=== PATIENT | male | born 1960 | race Caucasian/White ===

== ENCOUNTER 2024-01-26 09:10 | Inpatient (IN) | payer MEDICAID ==
[~2024-01-26] VITALS: Ht 167.6 cm; Wt 72.8 kg
[2024-01-26 10:08] LABS: HEMATOCRIT. 36.2 % (42.0-52.0); HEMOGLOBIN. 11.6 g/dL (14.0-18.0); MEAN CORPUSCULAR HEMOGLOBIN 28.2 pg (28.0-32.0); MEAN CORPUSCULAR HGB CONC 31.9 g/dL (31.0-37.0); MEAN CORPUSCULAR VOLUME 88.5 fL (80.0-94.0); MEAN PLATELET VOLUME 6.9 fl (7.4-10.4); PLATELET 512 x1000/uL (130-400); RED BLOOD CELL COUNT 4.09 mill/uL (4.7-6.1); RED CELL DISTRIBUTION WIDTH 18.5 % (11.6-14.6); WHITE BLOOD COUNT 13.4 x1000/uL (4.5-11.0)
[2024-01-26 10:12] LABS: DIFFERENTIAL COMMENT 1
[2024-01-26 10:26] LABS: CHLORIDE 95 mEq/L (98-107); POTASSIUM 4.9 mEq/L (3.5-5.1); SODIUM 129 mEq/L (136-145)
[2024-01-26 10:27] LABS: CALCIUM 7.9 mg/dL (8.7-10.4); CARBON DIOXIDE 24 mEq/L (21-32)
[2024-01-26] MEDS: ONDANSETRON HCL 4MG/2ML INJ IV ONE (10:28)
[2024-01-26] MEDS: MORPHINE SULFATE 4 MG/ML INJ (FOR IV/IM USE) IV ONE (10:29)
[2024-01-26] MEDS ORDERED: VANCOMYCIN 1000MG/250ML 250 ML IV SCH ×2 (10:30)
[2024-01-26] MEDS ORDERED: CEFEPIME 2GM IN DEXT 5% 100ML IV ONE (10:30)
[2024-01-26 10:32] LABS: CREATININE 1.3 mg/dL (0.6-1.3); GLUCOSE 118 mg/dL (70-105); UREA NITROGEN BLOOD 47 mg/dL (9-23)
[2024-01-26 10:34] LABS: ALANINE AMINOTRANSFERASE 16 IU/L (10-49); ALBUMIN 3.3 g/dL (3.2-4.8); ASPARTATE AMINOTRANSFERASE 37 IU/L (<34); BILIRUBIN DIRECT 0.1 mg/dL (<=3.0); BILIRUBIN TOTAL 0.3 mg/dL (0.1-1.0)
[2024-01-26 10:37] LABS: TROPONIN I HIGH SENSITIVITY < 4 ng/L (3.0-53)
[2024-01-26 10:41] LABS: INR 1.1; PROTHROMBIN TIME 12.4 sec (9.6-11.0)
[2024-01-26 10:45] LABS: LACTIC ACID 3.1 mmol/L (0.4-2.0)
[2024-01-26] MEDS: METRONIDAZOLE 500 MG PREMIX 100 ML IV ONE (10:59)
[2024-01-26] MEDS: CEFEPIME 2GM/100ML 100 ML IV NR (11:00)
[2024-01-26 11:03] LABS: NUCLEATED RED BLOOD CELLS 1 /100 WBC; PLATELET ESTIMATE INCREASED
[2024-01-26 11:05] LABS: ANISOCYTOSIS 1+
[2024-01-26] MEDS: SODIUM CHLORIDE 0.9% 1000ML BAG (SEPSIS BOLUS) IV ONE ×2 (11:38→19:30)
[2024-01-26] MEDS: VANCOMYCIN 1G PREMIX 200 ML IV NR ×2 (11:51→11:58)
[2024-01-26] MEDS: LACTATED RINGERS 1,000 ML IV SCH (12:05)
[2024-01-26 12:55] LABS: TROPONIN I HIGH SENSITIVITY < 4 ng/L (3.0-53)
[2024-01-26] MEDS ORDERED: ACETAMINOPHEN 325MG TABLET PO PRN (14:00)
[2024-01-26] MEDS ORDERED: IPRATROPIUM/ALBUTEROL 0.5-3(2.5)MG/3ML NEB HHN PRN (14:00)
[2024-01-26] MEDS ORDERED: CLONIDINE 0.1MG TABLET PO PRN (14:00)
[2024-01-26 15:24] LABS: PHOSPHORUS 6.5 mg/dL (2.5-4.9)
[2024-01-26] MEDS: ONDANSETRON HCL 4MG/2ML INJ IV PRN (17:12)
[2024-01-26] MEDS: PIPERACILLIN/TAZO 3.375G/50ML 50 ML IV SCH (19:09)
[2024-01-26] MEDS: PANTOPRAZOLE SODIUM 40 MG/VIAL IV SCH (19:09)
[2024-01-26] MEDS: SODIUM CHLORIDE 0.9% 1,000 ML IV SCH (19:20)
[2024-01-26] MEDS: ENOXAPARIN 30MG/0.3ML SYR SUBCUT SCH (19:20)
[2024-01-26] MEDS: NOREPINEPHRINE 8MG/250ML PMX 250 ML IV STA (19:43)
[2024-01-26] MEDS: METRONIDAZOLE 500 MG PREMIX 100 ML IV SCH (22:30)
[2024-01-27] VITALS (71 sets, daily range): BP systolic 90–164; BP diastolic 63–147; PULSE 99–114; RESP 18–29; TEMP 36.55848–37.0296; O2SAT 97–100
[2024-01-27 02:08] LABS: CLARITY URINE TURBID (CLEAR); COLOR URINE ORANGE (YELLOW); GLUCOSE URINE NEGATIVE (NEGATIVE); KETONES URINE NEGATIVE (NEGATIVE); LEUKOCYTE ESTERASE URINE 1+ (NEGATIVE); NITRITE URINE POSITIVE (NEGATIVE); OCCULT BLOOD URINE 2+ (NEGATIVE); PH URINE 5.5 (4.5-8.0); PROTEIN URINE 2+ (NEGATIVE); SPECIFIC GRAVITY URINE 1.029 (1.005-1.030)
[2024-01-27 03:10] LABS: WBC URINE 25-50 /hpf (0-2)
[2024-01-27 03:13] LABS: RBC URINE 25-50 /hpf (0-2); SQUAMOUS EPITHELIAL CELL URINE FEW /lpf (RARE/1+)
[2024-01-27 03:14] LABS: BACTERIA URINE 1+
[2024-01-27 04:30] LABS: BASOPHILS % 0.1 % (0.0-2.0); DIFFERENTIAL COMMENT 0; EOSINOPHILS % 0.5 % (0.0-5.0); HEMATOCRIT. 36.4 % (42.0-52.0); HEMOGLOBIN. 11.6 g/dL (14.0-18.0); LYMPHOCYTES % 10.9 % (20.0-50.0); MEAN CORPUSCULAR HEMOGLOBIN 28.9 pg (28.0-32.0); MEAN CORPUSCULAR HGB CONC 31.8 g/dL (31.0-37.0); MEAN PLATELET VOLUME 7.6 fl (7.4-10.4); MONOCYTES % 1.8 % (2.0-8.0); NEUTROPHILS % 86.7 % (40.0-76.0); PLATELET 339 x1000/uL (130-400); RED CELL DISTRIBUTION WIDTH 18.5 % (11.6-14.6); WHITE BLOOD COUNT 9.7 x1000/uL (4.5-11.0)
[2024-01-27 04:40] LABS: CHLORIDE 99 mEq/L (98-107); POTASSIUM 5.8 mEq/L (3.5-5.1); SODIUM 132 mEq/L (136-145)
[2024-01-27 04:41] LABS: CALCIUM 7.2 mg/dL (8.7-10.4); CARBON DIOXIDE 21 mEq/L (21-32)
[2024-01-27 04:46] LABS: CREATININE 1.6 mg/dL (0.6-1.3); GLUCOSE 74 mg/dL (70-105); TRIGLYCERIDE 99 mg/dL (0-150); UREA NITROGEN BLOOD 70 mg/dL (9-23)
[2024-01-27 04:47] LABS: LDL CHOLESTEROL 17 mg/dL (5-100)
[2024-01-27 04:48] LABS: CHOLESTEROL 59 mg/dL (<200); HDL CHOLESTEROL < 20 mg/dL (>55)
[2024-01-27 04:50] LABS: T4 FREE 0.41 ng/dL (0.89-1.76); THYROID STIMULATING HORMONE 2.82 uIU/mL (0.55-4.78)
[2024-01-27] MEDS: VANCOMYCIN 1.25GM PMX (XELLIA) 250 ML IV SCH (10:43)
[2024-01-27 12:49] LABS: CALCIUM 6.1 mg/dL (8.7-10.4)
[2024-01-27] MEDS: PIPERACILLIN/TAZO 3.375G/50ML 50 ML IV SCH (14:13)
[2024-01-27] MEDS ORDERED: METRONIDAZOLE 500 MG PREMIX 100 ML IV SCH (15:00)
[2024-01-27] MEDS: CALCIUM CHLORIDE 1GM/10ML SYR IV NR (16:17)
[2024-01-27] MEDS: SODIUM BICARBONATE 8.4% 50MEQ/50ML SYR IV NR (16:17)
[2024-01-27] MEDS: DEXT 5%/0.9% NACL 1,000 ML IV SCH (16:18)
[2024-01-27] MEDS: DEXTROSE 50% WATER 50ML SYRINGE IV NR (16:18)
[2024-01-27] MEDS: INSULIN REGULAR (HUMULIN R) 1000UNITS/10ML VIAL IV NR (16:19)
[2024-01-27] MEDS: ALBUTEROL (0.083%) 2.5MG/3ML NEB HHN NR (17:36)
[2024-01-27 20:05] LABS: POTASSIUM 5.4 mEq/L (3.5-5.1)
[2024-01-27] MEDS: FAMOTIDINE 20MG TABLET PO SCH (21:07)
[2024-01-28] VITALS (91 sets, daily range): BP systolic 88–139; BP diastolic 46–116; PULSE 92–111; RESP 19–35; TEMP 36.3918–37.11408; O2SAT 94–100
[2024-01-28] MEDS: KETOROLAC 15MG/ML VIAL IV PRN (01:21)
[2024-01-28 05:59] LABS: POTASSIUM 5.2 mEq/L (3.5-5.1)
[2024-01-28 06:00] LABS: CALCIUM 6.2 mg/dL (8.7-10.4); HEMATOCRIT. 27.3 % (42.0-52.0); HEMOGLOBIN. 8.8 g/dL (14.0-18.0); MEAN CORPUSCULAR HEMOGLOBIN 28.9 pg (28.0-32.0); MEAN CORPUSCULAR HGB CONC 32.4 g/dL (31.0-37.0); MEAN CORPUSCULAR VOLUME 89.2 fL (80.0-94.0); MEAN PLATELET VOLUME 8.1 fl (7.4-10.4); PLATELET 154 x1000/uL (130-400); RED BLOOD CELL COUNT 3.05 mill/uL (4.7-6.1)
[2024-01-28 06:05] LABS: CREATININE 2.3 mg/dL (0.6-1.3)
[2024-01-28 07:25] LABS: DIFFERENTIAL COMMENT 1
[2024-01-28] MEDS: BLOOD SUGAR DIAGNOSTIC STRIP TEST SCH (07:32)
[2024-01-28] MEDS: TAMSULOSIN HCL 0.4MG SR CAPSULE PO SCH (08:20)
[2024-01-28] MEDS: SODIUM ZIRCONIUM CYCLOSILICATE 10GM/PACKET PO NR (08:45)
[2024-01-28] MEDS ORDERED: ALBUTEROL (0.5%) 2.5MG/0.5ML NEB HHN NR (08:45)
[2024-01-28] MEDS ORDERED: DIATR MEGLU/DIATRIZOATE SOLN 120ML ONE (10:38)
[2024-01-28 12:18] LABS: IRON 75 ug/dL (65-175)
[2024-01-28 12:21] LABS: CREATINE KINASE 757 IU/L (46-171); TOTAL IRON BINDING CAPACITY 286 ug/dl (250-425)
[2024-01-28 12:23] LABS: FERRITIN > 1650 ng/mL (22-322)
[2024-01-28 12:24] LABS: FOLIC ACID (FOLATE) SERUM 10.89 ng/mL (>5.38); VITAMIN B12 SERUM 1467 pg/mL (211-911)
[2024-01-28 15:37] LABS: MEAN CORPUSCULAR HEMOGLOBIN 28.9 pg (28.0-32.0); MEAN CORPUSCULAR HGB CONC 31.2 g/dL (31.0-37.0); MEAN CORPUSCULAR VOLUME 92.6 fL (80.0-94.0); PLATELET 121 x1000/uL (130-400); RED BLOOD CELL COUNT 3.13 mill/uL (4.7-6.1); RED CELL DISTRIBUTION WIDTH 19.4 % (11.6-14.6); WHITE BLOOD COUNT 8.1 x1000/uL (4.5-11.0)
[2024-01-28 16:37] LABS: ANISOCYTOSIS 1+; PLATELET ESTIMATE NORMAL
[2024-01-28] MEDS: PIPERACILLIN/TAZO 3.375G/50ML IV SCH (20:53)
[2024-01-29] VITALS (80 sets, daily range): BP systolic 87–118; BP diastolic 63–95; PULSE 94–114; RESP 18–32; TEMP 36.6696–37.2252; O2SAT 96–100
[2024-01-29] MEDS ORDERED: METOCLOPRAMIDE HCL 10MG/2ML VIAL IV NR (04:00)
[2024-01-29 05:46] LABS: HEMOGLOBIN. 9.5 g/dL (14.0-18.0); MEAN CORPUSCULAR HEMOGLOBIN 28.9 pg (28.0-32.0); MEAN CORPUSCULAR HGB CONC 31.7 g/dL (31.0-37.0); MEAN CORPUSCULAR VOLUME 91.2 fL (80.0-94.0); MEAN PLATELET VOLUME 8.3 fl (7.4-10.4); PLATELET 97 x1000/uL (130-400); POTASSIUM 4.7 mEq/L (3.5-5.1); RED BLOOD CELL COUNT 3.29 mill/uL (4.7-6.1); RED CELL DISTRIBUTION WIDTH 19.1 % (11.6-14.6); WHITE BLOOD COUNT 7.5 x1000/uL (4.5-11.0)
[2024-01-29 05:51] LABS: CREATININE 2.5 mg/dL (0.6-1.3)
[2024-01-29 06:14] LABS: DIFFERENTIAL COMMENT 1
[2024-01-29] MEDS: SODIUM BICARBONATE 650MG TABLET PO SCH (09:00)
[2024-01-29 09:06] LABS: PLATELET ESTIMATE DECREASED
[2024-01-29] MEDS: PANTOPRAZOLE SODIUM 40 MG/VIAL IV SCH (11:29)
[2024-01-29] MEDS ORDERED: SODIUM CHLORIDE 0.9% 1000ML BAG (SEPSIS BOLUS) IV ONE (19:45)
[2024-01-29] MEDS: SODIUM CHLORIDE 0.9% 500 ML IV ONE (20:50)
[2024-01-30] VITALS (75 sets, daily range): BP systolic 69–124; BP diastolic 52–77; PULSE 95–131; RESP 10–32; TEMP 36.61404–37.16964; O2SAT 97–100
[2024-01-30 04:45] LABS: BASOPHILS % 0.3 % (0.0-2.0); DIFFERENTIAL COMMENT 0; EOSINOPHILS % 0.8 % (0.0-5.0); HEMATOCRIT. 24.8 % (42.0-52.0); HEMOGLOBIN. 7.9 g/dL (14.0-18.0); MEAN CORPUSCULAR HEMOGLOBIN 28.5 pg (28.0-32.0); MEAN CORPUSCULAR HGB CONC 31.6 g/dL (31.0-37.0); MEAN CORPUSCULAR VOLUME 90.2 fL (80.0-94.0); MEAN PLATELET VOLUME 8.5 fl (7.4-10.4); MONOCYTES % 4.8 % (2.0-8.0); NEUTROPHILS % 77.1 % (40.0-76.0); PLATELET 60 x1000/uL (130-400); RED BLOOD CELL COUNT 2.76 mill/uL (4.7-6.1); RED CELL DISTRIBUTION WIDTH 19.2 % (11.6-14.6)
[2024-01-30 04:58] LABS: POTASSIUM 3.4 mEq/L (3.5-5.1)
[2024-01-30 04:59] LABS: CALCIUM 7.6 mg/dL (8.7-10.4)
[2024-01-30 05:04] LABS: CREATININE 2.4 mg/dL (0.6-1.3)
[2024-01-30] MEDS ORDERED: BUPIVACAINE HCL/PF 0.5% (5MG/ML) 10ML ONE (06:59)
[2024-01-30] MEDS ORDERED: ETOMIDATE 2MG/ML 10ML VIAL IV ONE (07:46)
[2024-01-30] MEDS ORDERED: ROCURONIUM BROMIDE 10MG/ML VIAL 5ML IV ONE (07:46)
[2024-01-30] MEDS ORDERED: MIDAZOLAM HCL 2 MG/2 ML VIAL ONE (09:19)
[2024-01-30] MEDS ORDERED: FENTANYL CITRATE/PF 50MCG/ML 2ML VIAL ONE (09:19)
[2024-01-30] MEDS: DEXTROSE 5% WATER 1,000 ML IV SCH (10:00)
[2024-01-30 10:54] LABS: BG BASE EXCESS -7.4 mmol/L (-2.0-2.0); BG CARBOXYHEMOGLOBIN 1.3 % (0.5-1.5); BG DEOXYHEMOGLOBIN 0.4 % (0.0-5.0); BG FRACTION INSPIRED OXYGEN 100; BG HCO3 ACT 16.4 mmol/L (22.0-26.0); BG METHEMOGLOBIN 0.3 % (0.0-1.5); BG OXYGEN SATURATION 99.6 % (92.0-98.5); BG PCO2 27.1 mmHg (35.0-45.0); BG PO2 488.1 mmHg (75.0-100.0); BG SAMPLE SITE RIGHT BRACHIAL; BG TOTAL HEMOGLOBIN 8.2 g/dL (12.0-18.0); BG VENT MODE VENT - AC
[2024-01-30] MEDS ORDERED: FENTANYL CITRATE/PF 50MCG/ML 2ML VIAL IV NR (12:45)
[2024-01-30] MEDS: LACTATED RINGERS 3,000 ML IV SCH (14:33)
[2024-01-30] MEDS: NOREPINEPHRINE 8MG/250ML PMX 250 ML IV PRN (14:34)
[2024-01-30] MEDS: PHENYLEPHRINE 100 MG in DEXT 5% WATER 240 ML IV PRN (15:04)
[2024-01-30] MEDS: LACTATED RINGERS 2,000 ML IV ONE (17:08)
[2024-01-30] MEDS: DEXTROSE 50% WATER 50ML SYRINGE IV PRN (17:09)
[2024-01-30] MEDS: DEXMEDETOMIDINE 400 MCG/100 ML 100 ML IV PRN (17:58)
[2024-01-31] VITALS (106 sets, daily range): BP systolic 73–131; BP diastolic 47–100; PULSE 85–124; RESP 16–29; TEMP 36.55848–37.16964; O2SAT 100
[2024-01-31 06:51] LABS: BASOPHILS % 0.1 % (0.0-2.0); EOSINOPHILS % 0.3 % (0.0-5.0); HEMATOCRIT. 24.6 % (42.0-52.0); HEMOGLOBIN. 7.6 g/dL (14.0-18.0); LYMPHOCYTES % 10.6 % (20.0-50.0); MEAN CORPUSCULAR HEMOGLOBIN 28.2 pg (28.0-32.0); MEAN CORPUSCULAR HGB CONC 30.7 g/dL (31.0-37.0); MEAN PLATELET VOLUME 9.7 fl (7.4-10.4); MONOCYTES % 1.1 % (2.0-8.0); NEUTROPHILS % 87.9 % (40.0-76.0); RED BLOOD CELL COUNT 2.68 mill/uL (4.7-6.1); RED CELL DISTRIBUTION WIDTH 19.6 % (11.6-14.6); WHITE BLOOD COUNT 16.1 x1000/uL (4.5-11.0)
[2024-01-31 07:08] LABS: CALCIUM 7.6 mg/dL (8.7-10.4); POTASSIUM 3.6 mEq/L (3.5-5.1)
[2024-01-31 07:14] LABS: CREATININE 2.2 mg/dL (0.6-1.3)
[2024-01-31 07:46] LABS: DIFFERENTIAL COMMENT 1
[2024-01-31 08:09] LABS: CARCINOEMBRYONIC AG - SEND OUT 15.6 ng/mL (0.0-4.7); PROSTATE SPECIFIC AG TOTAL 0.6 ng/mL (0.0-4.0)
[2024-01-31 09:17] LABS: BG BASE EXCESS -6.3 mmol/L (-2.0-2.0); BG DEOXYHEMOGLOBIN 1.4 % (0.0-5.0); BG FRACTION INSPIRED OXYGEN 40; BG HCO3 ACT 16.5 mmol/L (22.0-26.0); BG METHEMOGLOBIN 0.2 % (0.0-1.5); BG OXYGEN SATURATION 98.6 % (92.0-98.5); BG OXYHEMOGLOBIN 97.4 % (94.0-97.0); BG PCO2 23.5 mmHg (35.0-45.0); BG PH 7.464 (7.350-7.450); BG PO2 148.9 mmHg (75.0-100.0); BG SAMPLE SITE RIGHT RADIAL; BG TOTAL HEMOGLOBIN 8.1 g/dL (12.0-18.0); BG VENT MODE VENT - AC/VC
[2024-01-31] MEDS: SODIUM CHLORIDE 23.4% 154 MEQ in DEXT 10% WATER 1,000 ML IV SCH (10:38)
[2024-01-31] MEDS ORDERED: DEXMEDETOMIDINE 400 MCG/100 ML 100 ML IV PRN (11:30)
[2024-01-31] MEDS ORDERED: PROPOFOL 10MG/ML 100ML 100 ML IV PRN (11:30)
[2024-01-31] MEDS ORDERED: LIDOCAINE HCL 1% 10 MG/ML 10ML VIAL ONE (14:51)
[2024-01-31] MEDS ORDERED: CEFEPIME 2GM IN DEXT 5% 100ML IV SCH (16:45)
[2024-01-31] MEDS: FENTANYL 2500MCG/250ML PMX 250 ML IV PRN (17:46)
[2024-01-31] MEDS: CEFEPIME 2GM/100ML 100 ML IV SCH (17:53)
[2024-01-31] MEDS: METRONIDAZOLE 500 MG PREMIX 100 ML IV SCH (21:19)
[2024-01-31] MEDS: DEXT 10% WATER 1,000 ML IV SCH (21:23)
[2024-02-01] VITALS (109 sets, daily range): BP systolic 90–123; BP diastolic 54–73; PULSE 79–114; RESP 12–23; TEMP 35.8362–36.61404; O2SAT 98–100
[2024-02-01 06:05] LABS: BASOPHILS % 0.2 % (0.0-2.0); EOSINOPHILS % 0.7 % (0.0-5.0); LYMPHOCYTES % 12.4 % (20.0-50.0); MEAN CORPUSCULAR HEMOGLOBIN 28.4 pg (28.0-32.0); MEAN CORPUSCULAR HGB CONC 29.9 g/dL (31.0-37.0); MEAN PLATELET VOLUME 9.9 fl (7.4-10.4); MONOCYTES % 1.7 % (2.0-8.0); RED BLOOD CELL COUNT 2.15 mill/uL (4.7-6.1); WHITE BLOOD COUNT 11.9 x1000/uL (4.5-11.0)
[2024-02-01 06:13] LABS: POTASSIUM 3.5 mEq/L (3.5-5.1)
[2024-02-01 06:14] LABS: CALCIUM 7.4 mg/dL (8.7-10.4)
[2024-02-01 06:18] LABS: CREATININE 2.6 mg/dL (0.6-1.3)
[2024-02-01 06:50] LABS: HEMATOCRIT. 20.4 % (42.0-52.0); HEMOGLOBIN. 6.1 g/dL (14.0-18.0)
[2024-02-01 06:51] LABS: DIFFERENTIAL COMMENT 1; PLATELET 36 x1000/uL (130-400)
[2024-02-01 09:18] LABS: BG BASE EXCESS -5.5 mmol/L (-2.0-2.0); BG CARBOXYHEMOGLOBIN 1.4 % (0.5-1.5); BG DEOXYHEMOGLOBIN 1.1 % (0.0-5.0); BG FRACTION INSPIRED OXYGEN 30; BG HCO3 ACT 18.5 mmol/L (22.0-26.0); BG METHEMOGLOBIN 0.3 % (0.0-1.5); BG OXYGEN SATURATION 98.9 % (92.0-98.5); BG OXYHEMOGLOBIN 97.2 % (94.0-97.0); BG PCO2 29.8 mmHg (35.0-45.0); BG PH 7.411 (7.350-7.450); BG PO2 162.9 mmHg (75.0-100.0); BG SAMPLE SITE RIGHT RADIAL; BG TOTAL HEMOGLOBIN 6.6 g/dL (12.0-18.0); BG VENT MODE VENT - AC
[2024-02-01 15:24] LABS: BASOPHILS % 0.2 % (0.0-2.0); EOSINOPHILS % 0.5 % (0.0-5.0); HEMATOCRIT. 26.8 % (42.0-52.0); HEMOGLOBIN. 8.7 g/dL (14.0-18.0); LYMPHOCYTES % 9.7 % (20.0-50.0); MEAN CORPUSCULAR HEMOGLOBIN 29.3 pg (28.0-32.0); MEAN CORPUSCULAR HGB CONC 32.3 g/dL (31.0-37.0); MEAN CORPUSCULAR VOLUME 90.7 fL (80.0-94.0); MEAN PLATELET VOLUME 9.3 fl (7.4-10.4); MONOCYTES % 1.7 % (2.0-8.0); NEUTROPHILS % 87.9 % (40.0-76.0); RED BLOOD CELL COUNT 2.96 mill/uL (4.7-6.1); RED CELL DISTRIBUTION WIDTH 17.3 % (11.6-14.6); WHITE BLOOD COUNT 10.6 x1000/uL (4.5-11.0)
[2024-02-01 15:28] LABS: DIFFERENTIAL COMMENT 1; PLATELET 21 x1000/uL (130-400)
[2024-02-01 15:32] LABS: BG BASE EXCESS -7.6 mmol/L (-2.0-2.0); BG CARBOXYHEMOGLOBIN 1.2 % (0.5-1.5); BG FRACTION INSPIRED OXYGEN 30; BG HCO3 ACT 15.4 mmol/L (22.0-26.0); BG METHEMOGLOBIN 0.3 % (0.0-1.5); BG OXYHEMOGLOBIN 97.5 % (94.0-97.0); BG PCO2 24.8 mmHg (35.0-45.0); BG PH 7.412 (7.350-7.450); BG PO2 166.6 mmHg (75.0-100.0); BG SAMPLE SITE RIGHT RADIAL; BG TOTAL HEMOGLOBIN 11.9 g/dL (12.0-18.0); BG VENT MODE VENT - CPAP
[2024-02-01] MEDS: SODIUM BICARBONATE 8.4% 50MEQ/50ML SYR IV NR (15:43)
[2024-02-02] VITALS (69 sets, daily range): BP systolic 102–122; BP diastolic 61–76; PULSE 79–98; RESP 16–23; TEMP 36.28068–36.72516; O2SAT 96–100
[2024-02-02 01:14] LABS: BASOPHILS % 0.1 % (0.0-2.0); EOSINOPHILS % 0.5 % (0.0-5.0); HEMATOCRIT. 25.8 % (42.0-52.0); HEMOGLOBIN. 8.6 g/dL (14.0-18.0); LYMPHOCYTES % 10.1 % (20.0-50.0); MEAN CORPUSCULAR HEMOGLOBIN 29.4 pg (28.0-32.0); MEAN CORPUSCULAR HGB CONC 33.3 g/dL (31.0-37.0); MEAN CORPUSCULAR VOLUME 88.2 fL (80.0-94.0); MONOCYTES % 2.1 % (2.0-8.0); NEUTROPHILS % 87.2 % (40.0-76.0); RED BLOOD CELL COUNT 2.93 mill/uL (4.7-6.1); RED CELL DISTRIBUTION WIDTH 16.9 % (11.6-14.6)
[2024-02-02 01:46] LABS: PLATELET 33 x1000/uL (130-400)
[2024-02-02 01:47] LABS: DIFFERENTIAL COMMENT 1
[2024-02-02 05:30] LABS: BASOPHILS % 0.2 % (0.0-2.0); EOSINOPHILS % 0.6 % (0.0-5.0); HEMATOCRIT. 26.9 % (42.0-52.0); HEMOGLOBIN. 8.5 g/dL (14.0-18.0); LYMPHOCYTES % 10.8 % (20.0-50.0); MEAN CORPUSCULAR HEMOGLOBIN 29.1 pg (28.0-32.0); MEAN CORPUSCULAR HGB CONC 31.6 g/dL (31.0-37.0); MEAN CORPUSCULAR VOLUME 92.2 fL (80.0-94.0); MEAN PLATELET VOLUME 8.9 fl (7.4-10.4); MONOCYTES % 0.8 % (2.0-8.0); NEUTROPHILS % 87.6 % (40.0-76.0); RED BLOOD CELL COUNT 2.92 mill/uL (4.7-6.1); RED CELL DISTRIBUTION WIDTH 18.3 % (11.6-14.6); WHITE BLOOD COUNT 8.9 x1000/uL (4.5-11.0)
[2024-02-02 05:38] LABS: CARBON DIOXIDE 17 mEq/L (21-32); CHLORIDE 111 mEq/L (98-107); SODIUM 141 mEq/L (136-145)
[2024-02-02 05:39] LABS: CALCIUM 7.3 mg/dL (8.7-10.4)
[2024-02-02 05:43] LABS: CREATININE 2.2 mg/dL (0.6-1.3); GLUCOSE 105 mg/dL (70-105)
[2024-02-02 05:44] LABS: UREA NITROGEN BLOOD 79 mg/dL (9-23)
[2024-02-02 05:46] LABS: PHOSPHORUS 7.2 mg/dL (2.5-4.9)
[2024-02-02 05:50] LABS: POTASSIUM 2.8 mEq/L (3.5-5.1)
[2024-02-02] MEDS ORDERED: POTASSIUM CHLORIDE 40 MEQ in DEXT 5% WATER 230 ML IV STA (05:52)
[2024-02-02] MEDS: KCL 20MEQ/100ML PREMIX 100 ML IV SCH (05:57)
[2024-02-02 07:14] LABS: DIFFERENTIAL COMMENT 1
[2024-02-02] MEDS: SODIUM BICARBONATE 8.4% 50MEQ/50ML SYR IV NR (09:18)
[2024-02-02 10:09] LABS: BG BASE EXCESS -6.6 mmol/L (-2.0-2.0); BG DEOXYHEMOGLOBIN 0.9 % (0.0-5.0); BG FRACTION INSPIRED OXYGEN 34; BG HCO3 ACT 15.8 mmol/L (22.0-26.0); BG METHEMOGLOBIN 0.3 % (0.0-1.5); BG OXYGEN SATURATION 99.1 % (92.0-98.5); BG OXYHEMOGLOBIN 97.8 % (94.0-97.0); BG PCO2 24.3 mmHg (35.0-45.0); BG PH 7.432 (7.350-7.450); BG PO2 193.9 mmHg (75.0-100.0); BG SAMPLE SITE RIGHT RADIAL; BG TOTAL HEMOGLOBIN 13.1 g/dL (12.0-18.0); BG VENT MODE NASAL CANNULA
[2024-02-02] MEDS: ACETAMINOPHEN 1000MG/100ML 100 ML IV NR (11:30)
[2024-02-02] MEDS ORDERED: FENTANYL CITRATE/PF 50MCG/ML 2ML VIAL IV PRN (11:45)
[2024-02-02 12:20] LABS: BASOPHILS % 0.1 % (0.0-2.0); EOSINOPHILS % 0.4 % (0.0-5.0); HEMATOCRIT. 23.3 % (42.0-52.0); HEMOGLOBIN. 7.6 g/dL (14.0-18.0); LYMPHOCYTES % 9.1 % (20.0-50.0); MEAN CORPUSCULAR HEMOGLOBIN 29.1 pg (28.0-32.0); MEAN CORPUSCULAR HGB CONC 32.6 g/dL (31.0-37.0); MEAN CORPUSCULAR VOLUME 89.4 fL (80.0-94.0); MEAN PLATELET VOLUME 8.6 fl (7.4-10.4); MONOCYTES % 1.5 % (2.0-8.0); NEUTROPHILS % 88.9 % (40.0-76.0); RED CELL DISTRIBUTION WIDTH 17.7 % (11.6-14.6); WHITE BLOOD COUNT 8.3 x1000/uL (4.5-11.0)
[2024-02-02 12:21] LABS: DIFFERENTIAL COMMENT 1
[2024-02-02] MEDS: KETOROLAC 15MG/ML VIAL IV NR (15:05)
[2024-02-02 15:15] LABS: PLATELET 28 x1000/uL (130-400)
[2024-02-02 15:16] LABS: PLATELET 24 x1000/uL (130-400)
[2024-02-02] MEDS: MORPHINE SULFATE 2 MG/ML INJ (NOT FOR IM USE) IV PRN (22:00)
[2024-02-03] VITALS (12 sets, daily range): BP systolic 102–135; BP diastolic 70–91; PULSE 87–96; RESP 14–18; TEMP 35.94732–36.6696; O2SAT 98–99
[2024-02-03 05:56] LABS: HEMATOCRIT. 28.6 % (42.0-52.0); HEMOGLOBIN. 9.4 g/dL (14.0-18.0); MEAN CORPUSCULAR HEMOGLOBIN 29.2 pg (28.0-32.0); MEAN CORPUSCULAR HGB CONC 32.8 g/dL (31.0-37.0); RED BLOOD CELL COUNT 3.21 mill/uL (4.7-6.1); RED CELL DISTRIBUTION WIDTH 17.2 % (11.6-14.6); WHITE BLOOD COUNT 10.8 x1000/uL (4.5-11.0)
[2024-02-03 06:22] LABS: CARBON DIOXIDE 20 mEq/L (21-32); CHLORIDE 112 mEq/L (98-107); SODIUM 141 mEq/L (136-145)
[2024-02-03 06:23] LABS: CALCIUM 7.4 mg/dL (8.7-10.4)
[2024-02-03 06:28] LABS: CREATININE 1.9 mg/dL (0.6-1.3); GLUCOSE 87 mg/dL (70-105)
[2024-02-03 06:29] LABS: UREA NITROGEN BLOOD 84 mg/dL (9-23)
[2024-02-03 06:31] LABS: PHOSPHORUS 6.2 mg/dL (2.5-4.9)
[2024-02-03 06:34] LABS: POTASSIUM 2.8 mEq/L (3.5-5.1)
[2024-02-03 07:02] LABS: DIFFERENTIAL COMMENT 1
[2024-02-03] MEDS: KCL 20MEQ/100ML PREMIX 100 ML IV NR ×2 (08:05→08:31)
[2024-02-03 08:14] LABS: MEAN PLATELET VOLUME 9.2 fl (7.4-10.4); PLATELET 32 x1000/uL (130-400)
[2024-02-03 12:58] LABS: ANISOCYTOSIS 1+; PLATELET ESTIMATE MARKEDLY DECREASED
[2024-02-03] MEDS: POTASSIUM CHLORIDE 20MEQ/PACKET PO NR (13:01)
[2024-02-03] MEDS: CEFEPIME 2GM/100ML 100 ML IV SCH (13:19)
[2024-02-03 13:55] LABS: PLATELET 36 x1000/uL (130-400)
[2024-02-03] MEDS ORDERED: NALOXONE HCL 0.4MG/ML VIAL IV PRN (17:00)
[2024-02-04] VITALS (12 sets, daily range): BP systolic 115–131; BP diastolic 74–82; PULSE 87–99; RESP 15–27; TEMP 36.3918–36.6696; O2SAT 96–99
[2024-02-04 06:26] LABS: CALCIUM 7.2 mg/dL (8.7-10.4); POTASSIUM 4.1 mEq/L (3.5-5.1)
[2024-02-04 06:32] LABS: CREATININE 1.9 mg/dL (0.6-1.3)
[2024-02-04 09:14] LABS: HEMATOCRIT. 31.4 % (42.0-52.0); HEMOGLOBIN. 10.1 g/dL (14.0-18.0); MEAN CORPUSCULAR HEMOGLOBIN 28.6 pg (28.0-32.0); MEAN CORPUSCULAR HGB CONC 32.1 g/dL (31.0-37.0); MEAN CORPUSCULAR VOLUME 89.2 fL (80.0-94.0); MEAN PLATELET VOLUME 9.4 fl (7.4-10.4); PLATELET 57 x1000/uL (130-400); RED BLOOD CELL COUNT 3.52 mill/uL (4.7-6.1); RED CELL DISTRIBUTION WIDTH 16.9 % (11.6-14.6); WHITE BLOOD COUNT 12.2 x1000/uL (4.5-11.0)
[2024-02-04 09:17] LABS: DIFFERENTIAL COMMENT 1
[2024-02-04] MEDS: CITRIC ACID/SODIUM CITRATE SOLN 30ML UDC PO SCH (09:53)
[2024-02-04 12:19] LABS: POTASSIUM 3.3 mEq/L (3.5-5.1)
[2024-02-04 12:21] LABS: CALCIUM 7.3 mg/dL (8.7-10.4)
[2024-02-04 12:25] LABS: CREATININE 1.6 mg/dL (0.6-1.3)
[2024-02-04 16:42] LABS: ANISOCYTOSIS 1+; PLATELET ESTIMATE MARKEDLY DECREASED
[2024-02-05] VITALS (12 sets, daily range): BP systolic 104–131; BP diastolic 75–85; PULSE 92–99; RESP 16–21; TEMP 36.3918–36.55848; O2SAT 98–100
[2024-02-05 06:27] LABS: BASOPHILS % 0.2 % (0.0-2.0); EOSINOPHILS % 0.5 % (0.0-5.0); HEMATOCRIT. 28.9 % (42.0-52.0); HEMOGLOBIN. 9.6 g/dL (14.0-18.0); LYMPHOCYTES % 9.3 % (20.0-50.0); MEAN CORPUSCULAR HEMOGLOBIN 29.6 pg (28.0-32.0); MEAN CORPUSCULAR HGB CONC 33.3 g/dL (31.0-37.0); MEAN CORPUSCULAR VOLUME 88.8 fL (80.0-94.0); MONOCYTES % 1.6 % (2.0-8.0); NEUTROPHILS % 88.4 % (40.0-76.0); PLATELET 63 x1000/uL (130-400); RED BLOOD CELL COUNT 3.25 mill/uL (4.7-6.1); RED CELL DISTRIBUTION WIDTH 16.9 % (11.6-14.6); WHITE BLOOD COUNT 10.4 x1000/uL (4.5-11.0)
[2024-02-05 06:32] LABS: CALCIUM 7.7 mg/dL (8.7-10.4); POTASSIUM 3.2 mEq/L (3.5-5.1)
[2024-02-05 06:38] LABS: CREATININE 1.5 mg/dL (0.6-1.3)
[2024-02-05] MEDS: KCL 20MEQ/100ML PREMIX 100 ML IV SCH (10:45)
[2024-02-05] MEDS: METRONIDAZOLE 500MG TABLET PO SCH (17:05)
[2024-02-06] VITALS (12 sets, daily range): BP systolic 102–129; BP diastolic 68–86; PULSE 94–110; RESP 17–26; TEMP 36.28068–36.89184; O2SAT 92–99
[2024-02-06 06:44] LABS: CARBON DIOXIDE 20 mEq/L (21-32); CHLORIDE 110 mEq/L (98-107); POTASSIUM 3.6 mEq/L (3.5-5.1); SODIUM 140 mEq/L (136-145)
[2024-02-06 06:45] LABS: CALCIUM 7.6 mg/dL (8.7-10.4)
[2024-02-06 06:47] LABS: BASOPHILS % 0.3 % (0.0-2.0); EOSINOPHILS % 0.6 % (0.0-5.0); HEMATOCRIT. 30.5 % (42.0-52.0); LYMPHOCYTES % 12.4 % (20.0-50.0); MEAN CORPUSCULAR HEMOGLOBIN 29.6 pg (28.0-32.0); MEAN CORPUSCULAR HGB CONC 32.7 g/dL (31.0-37.0); MEAN CORPUSCULAR VOLUME 90.3 fL (80.0-94.0); MEAN PLATELET VOLUME 9.2 fl (7.4-10.4); MONOCYTES % 2.6 % (2.0-8.0); NEUTROPHILS % 84.1 % (40.0-76.0); PLATELET 84 x1000/uL (130-400); RED BLOOD CELL COUNT 3.38 mill/uL (4.7-6.1); WHITE BLOOD COUNT 8.9 x1000/uL (4.5-11.0)
[2024-02-06 06:49] LABS: CREATININE 1.5 mg/dL (0.6-1.3)
[2024-02-06 06:50] LABS: GLUCOSE 110 mg/dL (70-105); UREA NITROGEN BLOOD 74 mg/dL (9-23)
[2024-02-06 06:52] LABS: PHOSPHORUS 4.9 mg/dL (2.5-4.9)
[2024-02-06] MEDS: ACETAMINOPHEN 325MG TABLET PO PRN (10:58)
[2024-02-07] VITALS (12 sets, daily range): BP systolic 109–133; BP diastolic 75–87; PULSE 104–111; RESP 18–23; TEMP 36.33624–37.66968; O2SAT 95–98
[2024-02-07 05:27] LABS: POTASSIUM 4.1 mEq/L (3.5-5.1)
[2024-02-07 05:29] LABS: CALCIUM 7.2 mg/dL (8.7-10.4)
[2024-02-07 05:33] LABS: CREATININE 1.7 mg/dL (0.6-1.3)
[2024-02-07 06:27] LABS: BASOPHILS % 0.4 % (0.0-2.0); EOSINOPHILS % 0.7 % (0.0-5.0); HEMATOCRIT. 31.1 % (42.0-52.0); HEMOGLOBIN. 9.8 g/dL (14.0-18.0); LYMPHOCYTES % 12.1 % (20.0-50.0); MEAN CORPUSCULAR HEMOGLOBIN 29.3 pg (28.0-32.0); MEAN CORPUSCULAR HGB CONC 31.4 g/dL (31.0-37.0); MEAN CORPUSCULAR VOLUME 93.2 fL (80.0-94.0); MEAN PLATELET VOLUME 9.6 fl (7.4-10.4); MONOCYTES % 2.2 % (2.0-8.0); NEUTROPHILS % 84.6 % (40.0-76.0); PLATELET 89 x1000/uL (130-400); RED BLOOD CELL COUNT 3.34 mill/uL (4.7-6.1); RED CELL DISTRIBUTION WIDTH 17.1 % (11.6-14.6); WHITE BLOOD COUNT 10.1 x1000/uL (4.5-11.0)
[2024-02-08] VITALS (12 sets, daily range): BP systolic 100–133; BP diastolic 69–93; PULSE 106–112; RESP 17–24; TEMP 36.05844–36.89184; O2SAT 95–99
[2024-02-08 08:44] LABS: CHLORIDE 105 mEq/L (98-107); POTASSIUM 3.5 mEq/L (3.5-5.1); SODIUM 134 mEq/L (136-145)
[2024-02-08 08:45] LABS: CALCIUM 7.2 mg/dL (8.7-10.4); CARBON DIOXIDE 21 mEq/L (21-32)
[2024-02-08 08:50] LABS: CREATININE 1.8 mg/dL (0.6-1.3); GLUCOSE 83 mg/dL (70-105)
[2024-02-08 08:51] LABS: UREA NITROGEN BLOOD 83 mg/dL (9-23)
[2024-02-08 08:52] LABS: ALANINE AMINOTRANSFERASE 20 IU/L (10-49); ALBUMIN 2.2 g/dL (3.2-4.8); ASPARTATE AMINOTRANSFERASE 34 IU/L (<34); PHOSPHORUS 5.2 mg/dL (2.5-4.9)
[2024-02-08 08:53] LABS: BILIRUBIN TOTAL 0.4 mg/dL (0.1-1.0); PROTEIN TOTAL 4.9 g/dL (6.0-8.3)
[2024-02-08 09:07] LABS: BASOPHILS % 0.6 % (0.0-2.0); EOSINOPHILS % 0.6 % (0.0-5.0); HEMATOCRIT. 27.2 % (42.0-52.0); HEMOGLOBIN. 9.1 g/dL (14.0-18.0); LYMPHOCYTES % 10.6 % (20.0-50.0); MEAN CORPUSCULAR HEMOGLOBIN 29.6 pg (28.0-32.0); MEAN CORPUSCULAR HGB CONC 33.5 g/dL (31.0-37.0); MEAN CORPUSCULAR VOLUME 88.4 fL (80.0-94.0); MEAN PLATELET VOLUME 9.2 fl (7.4-10.4); MONOCYTES % 2.4 % (2.0-8.0); NEUTROPHILS % 85.8 % (40.0-76.0); PLATELET 92 x1000/uL (130-400); RED BLOOD CELL COUNT 3.08 mill/uL (4.7-6.1); RED CELL DISTRIBUTION WIDTH 17.2 % (11.6-14.6); WHITE BLOOD COUNT 10.4 x1000/uL (4.5-11.0)
[2024-02-08] MEDS: THIAMINE HCL 100MG TABLET PO SCH (10:31)
[2024-02-08] MEDS: MAGNESIUM 1 G PREMIX 100 ML IV NR (13:03)
[2024-02-08] MEDS: CALCIUM GLUCONATE 1GM PREMIX 50 ML IV NR (13:03)
[2024-02-08] MEDS ORDERED: MEGE20TA4 MT (17:49)
[2024-02-08] MEDS ORDERED: *PATIENT'S OWN MEDICATION STORAGE XX SCH (18:15)
[2024-02-08 19:37] LABS: CALCIUM 7.2 mg/dL (8.7-10.4)
[2024-02-08 19:44] LABS: PHOSPHORUS 5.4 mg/dL (2.5-4.9)
[2024-02-08] MEDS: MELATONIN 3MG TABLET PO SCH (23:28)
[2024-02-08] MEDS: GUAIFENESIN 200MG/10ML SUGAR FREE UDC PO PRN (23:28)
[2024-02-09] VITALS (12 sets, daily range): BP systolic 100–137; BP diastolic 69–90; PULSE 103–109; RESP 21–32; TEMP 36.55848–37.00296; O2SAT 97–99
[2024-02-09 06:10] LABS: BASOPHILS % 0.5 % (0.0-2.0); EOSINOPHILS % 0.6 % (0.0-5.0); HEMOGLOBIN 9.1 g/dL (14.0-18.0); HEMOGLOBIN. 9.1 g/dL (14.0-18.0); LYMPHOCYTES % 10.5 % (20.0-50.0); MEAN CORPUSCULAR HEMOGLOBIN 29.5 pg (28.0-32.0); MEAN CORPUSCULAR HGB CONC 32.3 g/dL (31.0-37.0); MEAN CORPUSCULAR VOLUME 91.3 fL (80.0-94.0); MEAN PLATELET VOLUME 9.2 fl (7.4-10.4); MONOCYTES % 2.2 % (2.0-8.0); NEUTROPHILS % 86.2 % (40.0-76.0); PLATELET 81 x1000/uL (130-400); RED BLOOD CELL COUNT 3.07 mill/uL (4.7-6.1); RED CELL DISTRIBUTION WIDTH 17.2 % (11.6-14.6); WHITE BLOOD COUNT 9.7 x1000/uL (4.5-11.0)
[2024-02-09 06:16] LABS: POTASSIUM 3.5 mEq/L (3.5-5.1)
[2024-02-09 06:17] LABS: CALCIUM 7.1 mg/dL (8.7-10.4)
[2024-02-09 06:22] LABS: CREATININE 2.2 mg/dL (0.6-1.3)
[2024-02-09] MEDS: CALCIUM GLUCONATE 1GM PREMIX 50 ML IV NR (09:25)
[2024-02-09] MEDS: SODIUM CHLORIDE 0.9% 1,000 ML IV SCH (09:33)
[2024-02-09] MEDS: POTASSIUM CHLORIDE 20MEQ/PACKET PO NR (09:33)
[2024-02-09] MEDS: CEFEPIME 2GM/100ML 100 ML IV SCH (17:42)
[2024-02-10] VITALS (12 sets, daily range): BP systolic 97–131; BP diastolic 66–83; PULSE 102–109; RESP 22–26; TEMP 35.72508–36.9474; O2SAT 96–98
[2024-02-10 06:37] LABS: CARBON DIOXIDE 18 mEq/L (21-32); CHLORIDE 104 mEq/L (98-107); POTASSIUM 3.4 mEq/L (3.5-5.1); SODIUM 132 mEq/L (136-145)
[2024-02-10 06:38] LABS: CALCIUM 7.1 mg/dL (8.7-10.4)
[2024-02-10 06:43] LABS: CREATININE 2.4 mg/dL (0.6-1.3); GLUCOSE 100 mg/dL (70-105); UREA NITROGEN BLOOD 87 mg/dL (9-23)
[2024-02-10 06:45] LABS: PHOSPHORUS 4.3 mg/dL (2.5-4.9)
[2024-02-10 07:07] LABS: BASOPHILS % 0.7 % (0.0-2.0); EOSINOPHILS % 0.6 % (0.0-5.0); HEMATOCRIT 27.6 % (42.0-52.0); HEMATOCRIT. 27.6 % (42.0-52.0); HEMOGLOBIN 9.1 g/dL (14.0-18.0); HEMOGLOBIN. 9.1 g/dL (14.0-18.0); LYMPHOCYTES % 10.8 % (20.0-50.0); MEAN CORPUSCULAR HEMOGLOBIN 29.9 pg (28.0-32.0); MEAN CORPUSCULAR VOLUME 90.6 fL (80.0-94.0); MEAN PLATELET VOLUME 9.4 fl (7.4-10.4); MONOCYTES % 2.8 % (2.0-8.0); NEUTROPHILS % 85.1 % (40.0-76.0); PLATELET 67 x1000/uL (130-400); RED BLOOD CELL COUNT 3.05 mill/uL (4.7-6.1); RED CELL DISTRIBUTION WIDTH 16.9 % (11.6-14.6); WHITE BLOOD COUNT 7.3 x1000/uL (4.5-11.0)
[2024-02-10] MEDS: POTASSIUM CHLORIDE 20MEQ TABLET SR PO NR (09:02)
[2024-02-10] MEDS: MAGNESIUM 2 G PREMIX 50 ML IV NR (09:03)
[2024-02-10] MEDS ORDERED: POTASSIUM CHLORIDE 40 MEQ in DEXT 5% WATER 230 ML IV ONE (11:30)
[2024-02-10] MEDS ORDERED: NALOXONE HCL 0.4MG/ML VIAL IV PRN (12:00)
[2024-02-10] MEDS: HYDROCODONE/ACETAMINOPHEN 5/325MG TABLET PO PRN (12:32)
[2024-02-10] MEDS: KCL 20MEQ/100ML X 2 FOR TOTAL KCL 40MEQ/200ML IV SCH (12:37)
[2024-02-10] MEDS: DEXT 5%/0.9% NACL 1,000 ML IV SCH (13:54)
[2024-02-11] VITALS (18 sets, daily range): BP systolic 97–126; BP diastolic 60–82; PULSE 102–118; RESP 16–26; TEMP 36.3918–36.6696; O2SAT 95–100
[2024-02-11 05:39] LABS: CARBON DIOXIDE 18 mEq/L (21-32); CHLORIDE 106 mEq/L (98-107); POTASSIUM 4.5 mEq/L (3.5-5.1); SODIUM 133 mEq/L (136-145)
[2024-02-11 05:40] LABS: CALCIUM 7.4 mg/dL (8.7-10.4)
[2024-02-11 05:45] LABS: CREATININE 2.7 mg/dL (0.6-1.3); GLUCOSE 76 mg/dL (70-105)
[2024-02-11 06:12] LABS: UREA NITROGEN BLOOD 104 mg/dL (9-23)
[2024-02-11 06:17] LABS: BASOPHILS % 0.7 % (0.0-2.0); EOSINOPHILS % 1.1 % (0.0-5.0); HEMATOCRIT. 25.2 % (42.0-52.0); HEMOGLOBIN. 8.2 g/dL (14.0-18.0); LYMPHOCYTES % 13.3 % (20.0-50.0); MEAN CORPUSCULAR HEMOGLOBIN 29.5 pg (28.0-32.0); MEAN CORPUSCULAR HGB CONC 32.6 g/dL (31.0-37.0); MEAN CORPUSCULAR VOLUME 90.5 fL (80.0-94.0); MEAN PLATELET VOLUME 10.2 fl (7.4-10.4); MONOCYTES % 2.8 % (2.0-8.0); NEUTROPHILS % 82.1 % (40.0-76.0); RED BLOOD CELL COUNT 2.78 mill/uL (4.7-6.1); RED CELL DISTRIBUTION WIDTH 17.2 % (11.6-14.6)
[2024-02-11] MEDS ORDERED: CALCIUM GLUCONATE 1GM PREMIX 50 ML IV ONE (08:15)
[2024-02-11] MEDS: ACETYLCYSTEINE 200MG/ML 20% VIAL 4ML INH SCH (08:44)
[2024-02-11] MEDS: IPRATROPIUM/ALBUTEROL 0.5-3(2.5)MG/3ML NEB HHN SCH (08:44)
[2024-02-11] MEDS: MEGESTROL ACETATE 400 MG/10 ML UDC PO SCH (09:00)
[2024-02-11 10:12] LABS: DIFFERENTIAL COMMENT 1
[2024-02-11 11:02] LABS: POTASSIUM 4.4 mEq/L (3.5-5.1)
[2024-02-11 11:03] LABS: CALCIUM 7.3 mg/dL (8.7-10.4)
[2024-02-11 11:08] LABS: CREATININE 2.7 mg/dL (0.6-1.3)
[2024-02-11 12:35] LABS: CREATINE KINASE 183 IU/L (46-171)
[2024-02-11] MEDS: FUROSEMIDE 40MG TABLET PO SCH (14:08)
[2024-02-11] MEDS: CITRIC ACID/SODIUM CITRATE SOLN 30ML UDC PO SCH (14:08)
[2024-02-11] MEDS: METHYLPREDNISOLONE SOD SUCC 125MG/2ML (ACT-O-VIAL) IV SCH (14:08)
[2024-02-11] MEDS: AZITHROMYCIN 500MG/250ML 250 ML IV SCH (15:27)
[2024-02-11 16:23] LABS: BG BASE EXCESS -7.9 mmol/L (-2.0-3.0); BG CARBOXYHEMOGLOBIN 0.4 % (0.5-1.5); BG DEOXYHEMOGLOBIN 6.5 % (0.0-5.0); BG FRACTION INSPIRED OXYGEN 21; BG HCO3 ACT 14.7 mmol/L (21.0-28.0); BG METHEMOGLOBIN 0.3 % (0.5-1.5); BG OXYGEN SATURATION 93.5 % (94.0-98.0); BG OXYHEMOGLOBIN 92.8 % (94.0-98.0); BG PCO2 21.8 mmHg (35.0-48.0); BG PH 7.446 (7.350-7.450); BG PO2 66.5 mmHg (83.0-108.0); BG SAMPLE SITE RIGHT RADIAL; BG TOTAL HEMOGLOBIN 9.6 g/dL (13.5-17.5); BG VENT MODE ROOM AIR
[2024-02-11] MEDS ORDERED: MEGESTROL ACETATE 20MG TABLET PO SCH (18:00)
[2024-02-11] MEDS ORDERED: MELATONIN 3MG TABLET PO PRN (20:30)
[2024-02-11] MEDS: IPRATROPIUM BROMIDE (0.02%) 0.5MG/2.5ML NEB HHN SCH (21:21)
[2024-02-11] MEDS: METHYLPREDNISOLONE SOD SUCC 40MG/ML (ACT-O-VIAL) IV SCH (21:33)
[2024-02-12] VITALS (18 sets, daily range): BP systolic 94–111; BP diastolic 65–83; PULSE 90–113; RESP 15–23; TEMP 36.50292–36.83628; O2SAT 98–100
[2024-02-12 06:13] LABS: BASOPHILS % 0.2 % (0.0-2.0); EOSINOPHILS % 0.1 % (0.0-5.0); HEMATOCRIT. 25.2 % (42.0-52.0); HEMOGLOBIN. 8.4 g/dL (14.0-18.0); LYMPHOCYTES % 12.7 % (20.0-50.0); MEAN CORPUSCULAR HEMOGLOBIN 29.5 pg (28.0-32.0); MEAN CORPUSCULAR HGB CONC 33.2 g/dL (31.0-37.0); MEAN CORPUSCULAR VOLUME 88.7 fL (80.0-94.0); MEAN PLATELET VOLUME 9.8 fl (7.4-10.4); MONOCYTES % 2.5 % (2.0-8.0); NEUTROPHILS % 84.5 % (40.0-76.0); PLATELET 56 x1000/uL (130-400); POTASSIUM 5.3 mEq/L (3.5-5.1); RED BLOOD CELL COUNT 2.84 mill/uL (4.7-6.1); RED CELL DISTRIBUTION WIDTH 17.6 % (11.6-14.6); WHITE BLOOD COUNT 7.4 x1000/uL (4.5-11.0)
[2024-02-12] MEDS ORDERED: SODIUM POLYSTYRENE SULFONATE 15 G/60 ML BOT PO ONE ×2 (11:15)
[2024-02-12] MEDS: SODIUM ZIRCONIUM CYCLOSILICATE 10GM/PACKET PO NR (12:43)
[2024-02-12 19:21] LABS: CLARITY URINE TURBID (CLEAR); COLOR URINE ORANGE (YELLOW); GLUCOSE URINE NEGATIVE (NEGATIVE); KETONES URINE NEGATIVE (NEGATIVE); LEUKOCYTE ESTERASE URINE 2+ (NEGATIVE); NITRITE URINE NEGATIVE (NEGATIVE); OCCULT BLOOD URINE 3+ (NEGATIVE); PH URINE 5.5 (4.5-8.0); PROTEIN URINE 2+ (NEGATIVE); SPECIFIC GRAVITY URINE 1.016 (1.005-1.030); UROBILINOGEN URINE 0.2 E.U./dL (0.2-1.0)
[2024-02-12 19:48] LABS: RBC URINE 15-25 /hpf (0-2)
[2024-02-12 19:49] LABS: BACTERIA URINE 2+; SQUAMOUS EPITHELIAL CELL URINE 1+ /lpf (RARE/1+)
[2024-02-12] MEDS ORDERED: LORAZEPAM 2MG/ML INJ IV PRN (21:30)
[2024-02-13] VITALS (19 sets, daily range): BP systolic 88–115; BP diastolic 61–84; PULSE 88–101; RESP 13–20; TEMP 36.33624–36.61404; O2SAT 98–100
[2024-02-13] MEDS: LEVOFLOXACIN 750MG PREMIX 150 ML IV NR (01:28)
[2024-02-13 05:53] LABS: HEMATOCRIT 22.7 % (42.0-52.0); HEMOGLOBIN 7.5 g/dL (14.0-18.0); MEAN CORPUSCULAR HEMOGLOBIN 29.5 pg (28.0-32.0); MEAN CORPUSCULAR HGB CONC 33.3 g/dL (31.0-37.0); MEAN CORPUSCULAR VOLUME 88.5 fL (80.0-94.0); PLATELET 66 x1000/uL (130-400); RED BLOOD CELL COUNT 2.56 mill/uL (4.7-6.1); RED CELL DISTRIBUTION WIDTH 17.8 % (11.6-14.6); WHITE BLOOD COUNT 9.4 x1000/uL (4.5-11.0)
[2024-02-13 06:03] LABS: POTASSIUM 5.3 mEq/L (3.5-5.1)
[2024-02-13 06:09] LABS: CREATININE 3.3 mg/dL (0.6-1.3)
[2024-02-13 08:26] LABS: BG BASE EXCESS -4.4 mmol/L (-2.0-3.0); BG CARBOXYHEMOGLOBIN 0.3 % (0.5-1.5); BG DEOXYHEMOGLOBIN 1.1 % (0.0-5.0); BG FRACTION INSPIRED OXYGEN 30; BG HCO3 ACT 16.8 mmol/L (21.0-28.0); BG METHEMOGLOBIN 0.3 % (0.5-1.5); BG OXYGEN SATURATION 98.9 % (94.0-98.0); BG OXYHEMOGLOBIN 98.3 % (94.0-98.0); BG PCO2 19.2 mmHg (35.0-48.0); BG PO2 145.6 mmHg (83.0-108.0); BG SAMPLE SITE RIGHT RADIAL; BG TOTAL RESPIRATORY RATE 21 b/min; BG VENT MODE MASK - BIPAP
[2024-02-13] MEDS: SODIUM ZIRCONIUM CYCLOSILICATE 10GM/PACKET PO NR (09:30)
[2024-02-13] MEDS: SERTRALINE HCL 25MG TABLET PO SCH (09:30)
[2024-02-13 15:57] LABS: PLATELET 50 x1000/uL (130-400)
[2024-02-14] VITALS (15 sets, daily range): BP systolic 83–109; BP diastolic 62–77; PULSE 90–100; RESP 13–18; TEMP 34.61388–37.16964; O2SAT 98–100
[2024-02-14] MEDS: LEVOFLOXACIN 500MG PREMIX 100 ML IV SCH (10:08)
[2024-02-14 10:25] LABS: EOSINOPHILS % 0.1 % (0.0-5.0); HEMATOCRIT. 23.7 % (42.0-52.0); HEMOGLOBIN. 7.7 g/dL (14.0-18.0); LYMPHOCYTES % 14.8 % (20.0-50.0); MEAN CORPUSCULAR HEMOGLOBIN 28.9 pg (28.0-32.0); MEAN CORPUSCULAR HGB CONC 32.3 g/dL (31.0-37.0); MEAN CORPUSCULAR VOLUME 89.5 fL (80.0-94.0); MEAN PLATELET VOLUME 9.7 fl (7.4-10.4); MONOCYTES % 3.9 % (2.0-8.0); NEUTROPHILS % 81.2 % (40.0-76.0); PLATELET 67 x1000/uL (130-400); RED BLOOD CELL COUNT 2.65 mill/uL (4.7-6.1); RED CELL DISTRIBUTION WIDTH 18.4 % (11.6-14.6); WHITE BLOOD COUNT 13.8 x1000/uL (4.5-11.0)
[2024-02-14 10:29] LABS: POTASSIUM 4.8 mEq/L (3.5-5.1)
[2024-02-14 10:35] LABS: CREATININE 3.4 mg/dL (0.6-1.3)
[2024-02-14] MEDS: CALCIUM GLUCONATE 100MG/ML 10ML VIAL IV NR (15:00)
[2024-02-15] VITALS (14 sets, daily range): BP systolic 77–132; BP diastolic 47–76; PULSE 80–92; RESP 14–20; TEMP 36.114–37.05852; O2SAT 95–100
[2024-02-15] MEDS: AZITHROMYCIN 500 MG TABLET PO SCH (08:59)
[2024-02-15] MEDS: SODIUM CHLORIDE 0.9% 1,000 ML IV SCH (09:00)
[2024-02-15 10:54] LABS: EOSINOPHILS % 0.1 % (0.0-5.0); HEMATOCRIT. 23.5 % (42.0-52.0); HEMOGLOBIN. 7.6 g/dL (14.0-18.0); LYMPHOCYTES % 11.3 % (20.0-50.0); MEAN CORPUSCULAR HGB CONC 32.5 g/dL (31.0-37.0); MEAN CORPUSCULAR VOLUME 89.4 fL (80.0-94.0); MEAN PLATELET VOLUME 9.5 fl (7.4-10.4); NEUTROPHILS % 85.6 % (40.0-76.0); PLATELET 70 x1000/uL (130-400); RED BLOOD CELL COUNT 2.63 mill/uL (4.7-6.1); RED CELL DISTRIBUTION WIDTH 17.9 % (11.6-14.6)
[2024-02-15 11:03] LABS: POTASSIUM 3.4 mEq/L (3.5-5.1)
[2024-02-15 11:09] LABS: CREATININE 3.1 mg/dL (0.6-1.3)
[2024-02-15] MEDS: DEXT 5%/0.9% NACL 1,000 ML IV SCH (12:57)
[2024-02-15] MEDS ORDERED: CALCIUM GLUCONATE 100MG/ML 10ML VIAL IV ONE (17:00)
[2024-02-15] MEDS: CALCIUM GLUCONATE 1GM PREMIX 50 ML IV NR (18:06)
[2024-02-16] VITALS (9 sets, daily range): BP systolic 88–145; BP diastolic 58–70; PULSE 72–97; RESP 16–20; TEMP 35.94732–37.05852; O2SAT 95–100
[2024-02-16 07:24] LABS: HEMATOCRIT. 24.2 % (42.0-52.0); MEAN CORPUSCULAR HEMOGLOBIN 29.2 pg (28.0-32.0); MEAN CORPUSCULAR HGB CONC 32.8 g/dL (31.0-37.0); MEAN CORPUSCULAR VOLUME 88.9 fL (80.0-94.0); RED BLOOD CELL COUNT 2.72 mill/uL (4.7-6.1); RED CELL DISTRIBUTION WIDTH 18.2 % (11.6-14.6); WHITE BLOOD COUNT 17.5 x1000/uL (4.5-11.0)
[2024-02-16 07:25] LABS: CREATININE 2.7 mg/dL (0.6-1.3)
[2024-02-16 07:30] LABS: DIFFERENTIAL COMMENT 1
[2024-02-16 08:28] LABS: CALCIUM 4.8 mg/dL (8.7-10.4); POTASSIUM 2.7 mEq/L (3.5-5.1)
[2024-02-16] MEDS: KCL 20MEQ/100ML PREMIX 100 ML IV SCH (11:03)
[2024-02-16] MEDS: CALCIUM GLUCONATE 1GM PREMIX 50 ML IV NR (13:10)
[2024-02-16 13:27] LABS: ANISOCYTOSIS 1+; MEAN PLATELET VOLUME 9.8 fl (7.4-10.4); PLATELET 76 x1000/uL (130-400); PLATELET ESTIMATE DECREASED
[2024-02-16] MEDS ORDERED: SODIUM CHLORIDE 0.9% 500 ML IV NR (13:30)
[2024-02-16] MEDS: DEXT 5%/LACTATED RINGERS 1,000 ML IV SCH (14:38)
[2024-02-16] MEDS: POTASSIUM CHLORIDE IV NR (19:45)
[2024-02-16] MEDS: DEXT 5% IV NR (19:45)
[2024-02-16] MEDS: WATER IV NR (19:45)
[2024-02-16] MEDS: SODIUM CHLORIDE 0.9% 500 ML IV NR (20:20)
[2024-02-16 21:44] LABS: CREATININE 2.4 mg/dL (0.6-1.3)
[2024-02-16 22:14] LABS: CALCIUM 4.7 mg/dL (8.7-10.4)
[2024-02-17] VITALS: BP 99/79; PULSE 88; RESP 18; TEMP 36.72516; O2SAT 97
[2024-02-17] MEDS: CALCIUM GLUCONATE 1GM PREMIX 50 ML IV NR ×2 (01:20→12:12)
[2024-02-17 04:00] VITALS: BP 103/57; PULSE 85; RESP 18; TEMP 36.50292; O2SAT 18
[2024-02-17 08:00] VITALS: BP 97/63; PULSE 86; RESP 18; TEMP 37.16964; O2SAT 100
[2024-02-17 10:52] LABS: HEMATOCRIT. 25.2 % (42.0-52.0); MEAN CORPUSCULAR HEMOGLOBIN 28.9 pg (28.0-32.0); MEAN CORPUSCULAR HGB CONC 31.9 g/dL (31.0-37.0); MEAN CORPUSCULAR VOLUME 90.6 fL (80.0-94.0); RED BLOOD CELL COUNT 2.78 mill/uL (4.7-6.1); RED CELL DISTRIBUTION WIDTH 19.2 % (11.6-14.6); WHITE BLOOD COUNT 21.4 x1000/uL (4.5-11.0)
[2024-02-17 10:55] LABS: DIFFERENTIAL COMMENT 1
[2024-02-17 10:59] LABS: CREATININE 2.3 mg/dL (0.6-1.3)
[2024-02-17 11:47] LABS: MEAN PLATELET VOLUME 9.6 fl (7.4-10.4); PLATELET 81 x1000/uL (130-400)
[2024-02-17 11:51] LABS: ANISOCYTOSIS 1+; PLATELET ESTIMATE DECREASED
[2024-02-17 12:00] VITALS: BP 102/58; PULSE 84; RESP 18; TEMP 36.33624; O2SAT 100
[2024-02-17] MEDS ORDERED: POTASSIUM CHLORIDE 40 MEQ in DEXT 5% WATER 230 ML IV ONE (14:45)
[2024-02-17] MEDS: DEXT 5% WATER 500 ML IV ONE (14:48)
[2024-02-17] MEDS: CEFEPIME 2GM/100ML 100 ML IV SCH (15:37)
[2024-02-17] MEDS: MAGNESIUM 1 G PREMIX 100 ML IV NR (15:37)
[2024-02-17 16:00] VITALS: BP 102/59; PULSE 88; RESP 18; TEMP 37.11408; O2SAT 100
[2024-02-17] MEDS: KCL 20MEQ/100ML X 2 FOR TOTAL KCL 40MEQ/200ML IV SCH (16:53)
[2024-02-17] MEDS ORDERED: CEFEPIME 1GM IN DEXT 5% 50ML IV SCH (18:00)
[2024-02-17] MEDS ORDERED: CEFEPIME 1GM/50ML 50 ML IV SCH (18:00)
[2024-02-17] MEDS: POTASSIUM CHLORIDE 40 MEQ in DEXTROSE 5% WATER 1,000 ML IV SCH (18:13)
[2024-02-17 20:00] VITALS: BP 99/52; PULSE 82; RESP 17; TEMP 36.6696; O2SAT 100
[2024-02-18 04:39] VITALS: BP 97/61; PULSE 85; RESP 18; TEMP 36.114; O2SAT 100
[2024-02-18 07:05] LABS: POTASSIUM 3.3 mEq/L (3.5-5.1)
[2024-02-18 08:00] VITALS: BP 106/66; PULSE 88; RESP 20; TEMP 36.33624; O2SAT 100
[2024-02-18 09:03] LABS: HEMATOCRIT. 22.1 % (42.0-52.0); HEMOGLOBIN. 7.2 g/dL (14.0-18.0); MEAN CORPUSCULAR HEMOGLOBIN 29.1 pg (28.0-32.0); MEAN CORPUSCULAR HGB CONC 32.6 g/dL (31.0-37.0); MEAN CORPUSCULAR VOLUME 89.2 fL (80.0-94.0); MEAN PLATELET VOLUME 9.1 fl (7.4-10.4); PLATELET 72 x1000/uL (130-400); RED BLOOD CELL COUNT 2.48 mill/uL (4.7-6.1); RED CELL DISTRIBUTION WIDTH 18.8 % (11.6-14.6); WHITE BLOOD COUNT 21.3 x1000/uL (4.5-11.0)
[2024-02-18 09:04] LABS: DIFFERENTIAL COMMENT 1
[2024-02-18 12:00] VITALS: BP 97/61; PULSE 83; RESP 18; TEMP 36.22512; O2SAT 100
[2024-02-18] MEDS: CALCITRIOL 0.25MCG CAPSULE PO SCH (14:00)
[2024-02-18] MEDS: CALCIUM GLUCONATE 1GM PREMIX 50ML IV SCH (14:59)
[2024-02-18 16:00] VITALS: BP 95/61; PULSE 84; RESP 18; TEMP 36.3918; O2SAT 100
[2024-02-18 20:00] VITALS: BP 98/62; PULSE 86; RESP 20; TEMP 36.6696; O2SAT 100
[2024-02-18 22:27] LABS: ANISOCYTOSIS 1+; PLATELET ESTIMATE DECREASED
[2024-02-19] VITALS (14 sets, daily range): BP systolic 84–156; BP diastolic 48–90; PULSE 74–90; RESP 14–20; TEMP 36.28068–37.16964; O2SAT 98–100
[2024-02-19] MEDS: DEXT 5%/0.45% NACL 1000ML 1,000 ML IV SCH (08:35)
[2024-02-19 10:04] LABS: MEAN CORPUSCULAR HEMOGLOBIN 28.9 pg (28.0-32.0); MEAN CORPUSCULAR HGB CONC 31.9 g/dL (31.0-37.0); MEAN CORPUSCULAR VOLUME 90.4 fL (80.0-94.0); MEAN PLATELET VOLUME 8.9 fl (7.4-10.4); PLATELET 69 x1000/uL (130-400); RED BLOOD CELL COUNT 2.87 mill/uL (4.7-6.1); WHITE BLOOD COUNT 24.9 x1000/uL (4.5-11.0)
[2024-02-19 10:07] LABS: DIFFERENTIAL COMMENT 1
[2024-02-19 10:17] LABS: HEMATOCRIT. 25.9 % (42.0-52.0); HEMOGLOBIN. 8.3 g/dL (14.0-18.0)
[2024-02-19 10:20] LABS: CHLORIDE 117 mEq/L (98-107); POTASSIUM 3.7 mEq/L (3.5-5.1); SODIUM 154 mEq/L (136-145)
[2024-02-19 10:21] LABS: CARBON DIOXIDE 23 mEq/L (21-32)
[2024-02-19 10:26] LABS: CREATININE 1.9 mg/dL (0.6-1.3); GLUCOSE 108 mg/dL (70-105)
[2024-02-19 10:29] LABS: PREALBUMIN 6.9 mg/dl (10.0-40.0)
[2024-02-19 10:44] LABS: UREA NITROGEN BLOOD 165 mg/dL (9-23)
[2024-02-19 10:46] LABS: CALCIUM 5.3 mg/dL (8.7-10.4)
[2024-02-19 10:47] LABS: PHOSPHORUS 10.2 mg/dL (2.5-4.9)
[2024-02-19] MEDS: LANTHANUM CARBONATE 500MG CHEW TABLET NG SCH (16:11)
[2024-02-19 16:42] LABS: PLATELET ESTIMATE NORMAL
[2024-02-20 04:00] VITALS: BP 66/29; PULSE 56; RESP 18
== END 2024-02-20 05:58 | disposition hospice, home (50) | DRG 710 ==
LOC: ER 09:22 → EDBEDREQ 09:54 → CVICU 12:01 → EDBEDREQSVC 12:03 → EDBEDREQTM 12:03 → EDBEDREQ 12:04 → ER 18:36 → EDBEDREQSVC 20:02 → 5EST 02-02 18:08 → 6WST 02-15 07:05 → 7WST 02-15 15:38
PROVIDERS: ADMIT Internal Medicine; ATTEND Internal Medicine
PROC: 0DN80ZZ Release Small Intestine, Open Approach (ICD-10-PCS; principal; 2024-01-30)
PROC: 0D1B0Z4 Bypass Ileum to Cutaneous, Open Approach (ICD-10-PCS; 2024-01-30)
PROC: 0DBB0ZZ Excision of Ileum, Open Approach (ICD-10-PCS; 2024-01-30)
PROC: 0DJD0ZZ Inspection of Lower Intestinal Tract, Open Approach (ICD-10-PCS; 2024-01-30)
PROC: 5A1945Z Respiratory Ventilation, 24-96 Consecutive Hours (ICD-10-PCS; 2024-01-30)
PROC: 0BH17EZ Insertion of Endotracheal Airway into Trachea, Via Natural or Artificial Opening (ICD-10-PCS; 2024-01-30)
PROC: 02HV33Z Insertion of Infusion Device into Superior Vena Cava, Percutaneous Approach (ICD-10-PCS; 2024-01-31)
PROC: B548ZZA Ultrasonography of Superior Vena Cava, Guidance (ICD-10-PCS; 2024-01-31)
PROC: 30233N1 Transfusion of Nonautologous Red Blood Cells into Peripheral Vein, Percutaneous Approach (ICD-10-PCS; 2024-02-01)
PROC: 30233R1 Transfusion of Nonautologous Platelets into Peripheral Vein, Percutaneous Approach (ICD-10-PCS; 2024-02-01)
PROC: 5A09357 Assistance with Respiratory Ventilation, Less than 24 Consecutive Hours, Continuous Positive Airway Pressure (ICD-10-PCS; 2024-02-11)
DX: A41.9 Sepsis, unspecified organism (principal); D65 Disseminated intravascular coagulation [defibrination syndrome]; J96.01 Acute respiratory failure with hypoxia; N17.0 Acute kidney failure with tubular necrosis; G93.40 Encephalopathy, unspecified; K46.0 Unspecified abdominal hernia with obstruction, without gangrene; E87.20 Acidosis, unspecified; C78.4 Secondary malignant neoplasm of small intestine; D63.8 Anemia in other chronic diseases classified elsewhere; E87.1 Hypo-osmolality and hyponatremia; R18.8 Other ascites; D75.839 Thrombocytosis, unspecified; R61 Generalized hyperhidrosis; E87.5 Hyperkalemia; N39.0 Urinary tract infection, site not specified; K52.9 Noninfective gastroenteritis and colitis, unspecified; Z20.822 Contact with and (suspected) exposure to COVID-19; E83.51 Hypocalcemia; E86.0 Dehydration; K29.70 Gastritis, unspecified, without bleeding; N35.911 Unspecified urethral stricture, male, meatal; R62.7 Adult failure to thrive; E87.6 Hypokalemia; Z66 Do not resuscitate; N18.2 Chronic kidney disease, stage 2 (mild); R80.9 Proteinuria, unspecified; I95.81 Postprocedural hypotension; R00.0 Tachycardia, unspecified; F17.210 Nicotine dependence, cigarettes, uncomplicated; Z93.3 Colostomy status; Z85.048 Personal history of other malignant neoplasm of rectum, rectosigmoid junction, and anus; Z68.25 Body mass index [BMI] 25.0-25.9, adult; Z51.5 Encounter for palliative care; Z74.01 Bed confinement status
CPT/HCPCS: 36415; 36573; 36600; 71045; 74018; 74177; 74250; 76770; 80048; 80053; 80061; 80076; 80202; 81003; 82040; 82310; 82330; 82375; 82378; 82550; 82607; 82728; 82746; 82805; 82962; 83036; 83540; 83550; 83605; 83735; 83880; 83970; 84100; 84132; 84134; 84145; 84153; 84439; 84443; 84484; 85025; 85027; 85379; 86850; 86900; 86920; 87106; 88305; 92610; 93005; 93970; 94003; 94640; 94660; 97110; 97162; 97530; 99291; C1725; J0456; J0610; J0692; J1650; J1815; J1885; J1956; J2250; J2270; J2405; J2470; J2543; J2919; J2920; J3010; J3370; J3475; J3480; J3490; J7030; J7042; J7060; J7070; J7120; J7121; J7131; J7608; P9016; P9034; Q9957; Q9963; J0131